=== PATIENT | male | born 1965 | race Caucasian/White ===

== ENCOUNTER 2018-07-13 08:59 | Emergency (ER) | payer BC ==
[~2018-07-13] VITALS: Ht 175.3 cm; Wt 106.6 kg
[2018-07-13] MEDS ORDERED: NORVASC2.5 M1 (09:09)
[2018-07-13] MEDS ORDERED: LIPITOR20 MG (09:09)
[2018-07-13] MEDS ORDERED: ATIVAN2 M1 (09:09)
== END 2018-07-13 12:43 | disposition home or self-care (01) ==
LOC: ER 08:59
DX: J09.X2 Influenza due to identified novel influenza A virus with other respiratory manifestations (principal)